=== PATIENT | male | born 1980 | race Caucasian/White ===

== ENCOUNTER 2019-09-16 20:18 | Emergency (ER) | payer MEDICAID ==
[~2019-09-16] VITALS: Ht 180.3 cm; Wt 79.8 kg
[2019-09-16 20:37] VITALS: BP 155/88; Ht 180.3 cm; Wt 79.8 kg
== END 2019-09-16 21:24 | disposition home or self-care (01) ==
LOC: ED 20:18
DX: T16.2XXA Foreign body in left ear, initial encounter (principal); W45.8XXA Other foreign body or object entering through skin, initial encounter; Y93.89 Activity, other specified; Y92.89 Other specified places as the place of occurrence of the external cause; Y99.8 Other external cause status